=== PATIENT | female | born 1985 | race Caucasian/White ===

== ENCOUNTER 2016-06-04 16:24 | Emergency (ER) | payer SELFPAY ==
[2016-06-04 16:37] VITALS: TEMP 98; BMI 47.8
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
[2016-06-04 20:36] LABS: BASOPHIL 1.1 % (0-2.0); EOSINOPHIL 2.7 % (0-4.5); MCH 27.8 pg (25.7-33.7); MCHC 33.4 g/dl (32.0-36.0); MEAN CELL VOLUME 83.4 fl (80-96); MEAN PLT VOLUME 8.8 fl (7.5-11.1); NEUTROPHILS 61.3 % (42.8-82.8); PLATELET COUNT 272 K/MM3 (134-434); RDW 14.8 % (11.6-15.6); WHITE BLOOD COUNT 7.1 K/mm3 (4.0-10.0)
[2016-06-04 21:23] LABS: ALBUMIN 3.7 g/dl (3.4-5.0); ANION GAP 9 (8-16); BILIRUBIN,TOTAL 0.4 mg/dL (0.2-1.0); CALCIUM 8.8 mg/dL (8.5-10.1); CO2 26 mmol/L (21-32); CREATININE 0.8 mg/dL (0.55-1.02); GLUCOSE,RANDOM 100 mg/dL (74-106); SGOT/AST 15 U/L (15-37); SGPT/ALT 24 U/L (12-78); TOT PROT 7.6 g/dl (6.4-8.2)
[2016-06-04 21:24] LABS: ALK PHOS 72 U/L (45-117)
[2016-06-04 21:43] LABS: URINE APPEARANCE CLEAR; URINE BILIRUBIN NEGATIVE (NEGATIVE); URINE BLOOD NEGATIVE (NEGATIVE); URINE COLOR LTYELLOW; URINE GLUCOSE (UA) NEGATIVE (NEGATIVE); URINE KETONE NEGATIVE (NEGATIVE); URINE LEUK ESTERASE NEGATIVE (NEGATIVE); URINE NITRITE NEGATIVE (NEGATIVE); URINE PROTEIN NEGATIVE (NEGATIVE); URINE UROBILINOGEN 2.0 E.U/dl E.U./dl (0.2-1.0)
[2016-06-05] MEDS ORDERED: IBUPROFEN 400 MG TABLET (FP) PO ONE ×2 (00:49→00:57)
[2016-06-05 04:17] VITALS: BP 128/67; PULSE 64
== END 2016-06-05 01:09 | disposition home or self-care (01) ==
LOC: JER 16:24
DX: M25.562 Pain in left knee (principal); K80.20 Calculus of gallbladder without cholecystitis without obstruction; N20.0 Calculus of kidney; V47.5XXA Car driver injured in collision with fixed or stationary object in traffic accident, initial encounter; Y92.488 Other paved roadways as the place of occurrence of the external cause; Y93.89 Activity, other specified
CPT/HCPCS: 36415; 73562-TC-LT; 74176-TC; 80053; 81003; 84703; 85025; 99283-25; Q9967

== ENCOUNTER 2017-01-18 16:30 | Emergency (ER) | payer SELFPAY ==
[2017-01-18 16:42] VITALS: BP 129/69; PULSE 76; TEMP 98.6; BMI 43.9
[2017-01-18] MEDS ORDERED: DIPHTH,PERTUSS(ACELL),TET 0.5 ML DISP.SYRIN IM ONE (16:55)
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
== END 2017-01-18 17:41 | disposition home or self-care (01) ==
LOC: JER 16:30 → JERFT 16:30
PROC: 3E0234Z Introduction of Serum, Toxoid and Vaccine into Muscle, Percutaneous Approach (ICD-10-PCS; principal; 2017-01-18)
DX: S61.412A Laceration without foreign body of left hand, initial encounter (principal); W25.XXXA Contact with sharp glass, initial encounter; Y93.89 Activity, other specified; Y92.89 Other specified places as the place of occurrence of the external cause; Y99.8 Other external cause status
CPT/HCPCS: 73130-TC-LT; 90715; 99281-25

== ENCOUNTER 2018-03-13 14:04 | Emergency (ER) | payer SELFPAY ==
[2018-03-13 14:11] VITALS: BP 112/70; PULSE 71; TEMP 98.5; BMI 46.6
--- NOTE | 2018-03-13 15:18 | PDOC ---
History of Present Illness - General Chief Complaint: Eye Problem Stated Complaint: EYE PAIN Time Seen by Provider: 03/13/18 14:53 History Source: Patient Exam Limitations: No Limitations - History of Present Illness Initial Comments: 03/13/18 15:12 32 year old female with no medical history, surgical history of x 2 presents with right eye pain, swelling x 2 days. Also reports blurred vision and photophobia. Used no medication so far. Timing/Duration: other (2 days) Modifying Factors: improves with: rest Associated Symptoms: reports: denies symptoms Aspirin Received prior to arrival: Yes: no aspirin today Beta Daniel Contraindications(Core Measure): Yes: Not Prescribed Past History - Past Medical History Allergies/Adverse Reactions: Allergies Allergy/AdvReac Type Severity Reaction Status Date / Time Iodinated Contrast- Oral and Allergy Verified 01/18/17 16:57 IV Dye IV CONTRAST Allergy Itching Uncoded 01/18/17 16:43 Home Medications: Ambulatory Orders Erythromycin 0.5% Eye Ointment [Erythromycin 0.5% Eye Ointment -] 1 applic OS TID #1 tube 03/13/18 Asthma: No Cancer: No Cardiac Disorders: No COPD: No Diabetes: No Dialysis: No HTN: No Liver Disease: Yes (hep c) Seizures: No Thyroid Disease: No - Surgical History Abdominal Surgery: Yes (lap band) - Suicide/Smoking/Psychosocial Hx Smoking History: Never smoked Have you smoked in the past 12 months: Yes Number of Cigarettes Smoked Daily: 2 If you are a former smoker, when did you quit?: 2016 Information on smoking cessation initiated: No Hx Alcohol Use: No Drug/Substance Use Hx: No Substance Use Type: None Hx Substance Use Treatment: No Review of Systems - Review of Systems Able to Perform ROS?: Yes Is the patient limited Gabonese proficient: No Constitutional: No: Chills, Fever HEENTM: Yes: Eye Pain, Blurred Vision Respiratory: No: Cough, Shortness of Breath Cardiac (ROS): No: Chest Pain ABD/GI: No: Abdominal Distended, Vomiting, Indigestion Integumentary: No: Bruising, Erythema, Other Neurological: No: Headache, Numbness *Physical Exam - Vital Signs Last Vital Signs Temp Pulse Resp BP Pulse Ox 98.5 F 71 16 112/70 100 03/13/18 14:08 03/13/18 14:08 03/13/18 14:08 03/13/18 14:08 03/13/18 14:08 - Physical Exam General Appearance: Yes: Nourished, Appropriately Dressed HEENT: positive: TMs Normal, Scleral Icterus (L), Other (erythematous conjuctiva , no eye drainage) Neck: negative: Lymphadenopathy (R), Lymphadenopathy (L) Respiratory/Chest: positive: Lungs Clear Cardiovascular: positive: Regular Rhythm, Regular Rate, S1, S2 Extremity: positive: Normal Capillary Refill Neurologic: positive: Fully Oriented, Alert, Normal Mood/Affect Moderate Sedation - Procedure Monitoring Vital Signs: Procedure Monitoring Vital Signs Temperature 98.5 F 03/13/18 14:08 Pulse Rate 71 03/13/18 14:08 Respiratory Rate 16 03/13/18 14:08 Blood Pressure 112/70 03/13/18 14:08 O2 Sat by Pulse Oximetry (%) 100 03/13/18 14:08 Medical Decision Making - Medical Decision Making 03/13/18 15:16 32 year old female with x 2 and no significant medical history presents with left eye pain, swelling and photophobia x 2 days. Plan fluracein stain with uptake at 8 o'clock Rx: erythromycin ointment patanol gtts *DC/Admit/Observation/Transfer Diagnosis at time of Disposition: Conjunctivitis Qualifiers: Conjunctivitis type: acute Acute conjunctivitis type: viral Laterality: left Qualified Code(s): B30.9 - Viral conjunctivitis, unspecified - Discharge Dispostion Disposition: HOME Condition at time of disposition: Good Decision to Admit order: No - Prescriptions Prescriptions: Erythromycin 0.5% Eye Ointment [Erythromycin 0.5% Eye Ointment -] 1 applic OS TID #1 tube - Referrals Referrals: Ian Chung MD [Staff Physician] - 2 Days - Patient Instructions Printed Discharge Instructions: DI for Conjunctivitis Additional Instructions: Please wash hand frequently especially after touching eyes. Return for worsening pain in eyes or vision loss Call eye doctor for worsening symptoms - Post Discharge Activity Forms/Work/School Notes: Back to Work
== END 2018-03-13 15:25 | disposition home or self-care (01) ==
LOC: JERFT 14:04
DX: B30.9 Viral conjunctivitis, unspecified (principal)
CPT/HCPCS: 99281-25

== ENCOUNTER 2018-04-27 11:37 | Emergency (ER) | payer OTHER ==
[2018-04-27 11:54] VITALS: BP 109/56; PULSE 85; TEMP 98.6; BMI 51.7
--- NOTE | 2018-04-27 13:05 | PDOC ---
History of Present Illness - General Chief Complaint: Vaginal Bleeding Stated Complaint: VAGINAL BLEEDING Time Seen by Provider: 04/27/18 11:56 History Source: Patient, Old Records Exam Limitations: No Limitations - History of Present Illness Initial Comments: HPI: 32 y/o female presenting to [facility] ER complaining of vaginal bleeding. Pt states she has had irregular vaginal bleeding since November. Experienced an episode of heavy vaginal bleeding with clot-like material two weeks ago. Presented to [facility] ED. Was told she was , which was confirmed by U/S, and discharged. Continued to pass bloody/mucus discharge. Pt experienced a similar episode of heavy bleeding with clot-like material this morning at approx. 4am. Pt has used approx. 6 feminine pads over the course of the morning but states they were not saturated when she changed them. Endorses lightheadedness this morning, which resolved. Also endorses a sense of fullness and pressure throughout abdomen but denies pain. Denies chest pain, SOB, or syncope. Reports feeling safe in home environment and relationship. OBGYN Hx: A1 H/o of short cervix x2 Denies h/o STD PCP: [facility] Medical Hx: - Obesity - S/p Lap Banding Procedure in 2009 Pt denies taking prescription medications. Past History - Past Medical History Allergies/Adverse Reactions: Allergies Allergy/AdvReac Type Severity Reaction Status Date / Time Iodinated Contrast- Oral and Allergy Verified 01/18/17 16:57 IV Dye IV CONTRAST Allergy Itching Uncoded 01/18/17 16:43 Home Medications: Ambulatory Orders Nitrofurantoin Monohyd/M-Cryst [Macrobid -] 100 mg PO BID #14 capsule 04/27/18 Asthma: No Cancer: No Cardiac Disorders: No COPD: No Diabetes: No Dialysis: No HTN: No Liver Disease: Yes (hep c) Seizures: No Thyroid Disease: No - Surgical History Abdominal Surgery: Yes (lap band) - Suicide/Smoking/Psychosocial Hx Smoking History: Never smoked Have you smoked in the past 12 months: No Number of Cigarettes Smoked Daily: 2 If you are a former smoker, when did you quit?: 2016 Information on smoking cessation initiated: No Hx Alcohol Use: No Drug/Substance Use Hx: No Substance Use Type: None Hx Substance Use Treatment: No Review of Systems - Review of Systems Able to Perform ROS?: Yes Comments:: In addition to that documented in the HPI above, the additional ROS was obtained : Constitutional: Denies fevers or chills Eyes: Denies vision changes ENMT: Denies sore throat CV: Denies chest pain Resp: Denies SOB GI: Denies vomiting or diarrhea : Endorses increased urinary frequency over the past several weeks. Denies painful urination or hematuria. Vaginal discharge per HPI MSK: Denies recent trauma Skin: Denies new rashes Neuro: Denies new numbness or tingling or weakness Endocrine: Denies polyuria Heme: Denies bleeding or bruising *Physical Exam - Vital Signs Last Vital Signs Temp Pulse Resp BP Pulse Ox 98.6 F 85 18 109/56 L 98 04/27/18 11:51 04/27/18 11:51 04/27/18 11:51 04/27/18 11:51 04/27/18 11:51 - Physical Exam Comments: Constitutional: Well-developed, well-nourished female in no acute distress or obvious discomfort. Obese body habitus. Found semi-fowlers on hospital [employer] table. Alert and oriented x4. Answered all questions appropriately and completely. Speech was non-labored, non-pressured. Head: Normocephalic. No obvious external signs of trauma. Eyes: Sclerae white. Conjunctiva pink, moist, and not injected. Ears: Hearing grossly intact. Nose: No nasal discharge. Throat: Oral cavity and pharynx normal. No inflammation, swelling, exudate, or lesions. Multiple lingual piercings. Neck: Supple, trachea is midline. Cardiovascular / Chest: Regular rate and regular rhythm. No murmur, rubs, clicks, or gallops. Peripheral pulses: radial pulses full. Respiratory: Breathing unlabored. Equal chest rise and fall. Clear to auscultation bilaterally. No stridor, no wheezing, no rhonchi. Gastrointestinal: abdomen is diffusely tender to palpation without grimace, rebound, or withdrawl. Globally, abdomen is protuberant, soft, and nondistended. No overlying skin lesions or obvious signs of trauma. Neuro: Alert and oriented. Moving all four extremities spontaneously. Skin: [place], warm, dry, and intact. : No R or L CVA tenderness. Psych: Affect: appropriate. Mood: normal. Female Pelvic: External genitalia unremarkable. Speculum exam with blood and mucus discharge that pooled at end of speculum. Vaginal wall mucosa is unremarkable. Cervix difficult to visualized but visible portion is unremarkable (closed in appearance without any protruding material). Bimanual exam revealed closed OS without cervical motion tenderness, adnexal tenderness or any masses appreciated. RN chaperoned exam. Moderate Sedation - Procedure Monitoring Vital Signs: Procedure Monitoring Vital Signs Temperature 98.6 F 04/27/18 11:51 Pulse Rate 85 04/27/18 11:51 Respiratory Rate 18 04/27/18 11:51 Blood Pressure 109/56 L 04/27/18 11:51 O2 Sat by Pulse Oximetry (%) 98 04/27/18 11:51 ED Treatment Course - LABORATORY CBC & Chemistry Diagram: 04/27/18 13:00 04/27/18 13:00 - RADIOLOGY Radiology Studies Ordered: Category Date Time Status TRANSVAGINAL US PREG [US] Stat Ultrasound 04/27/18 12:40 Ordered *DC/Admit/Observation/Transfer Diagnosis at time of Disposition: Vaginal bleeding in patient at less than 20 weeks gestation - Discharge Dispostion Disposition: HOME Condition at time of disposition: Stable Decision to Admit order: No - Prescriptions Prescriptions: Nitrofurantoin Monohyd/M-Cryst [Macrobid -] 100 mg PO BID #14 capsule - Referrals Referrals: Laura Skelton MD [Staff Physician] - - Patient Instructions - Post Discharge Activity
[2018-04-27 13:23] LABS: URINE APPEARANCE SLCLOUDY; URINE BILIRUBIN NEGATIVE (<2.0 mg/dL); URINE GLUCOSE (UA) NEGATIVE (NEGATIVE); URINE KETONE NEGATIVE (NEGATIVE); URINE LEUK ESTERASE 2+ (NEGATIVE); URINE NITRITE NEGATIVE (NEGATIVE); URINE PROTEIN 2+ (NEGATIVE); URINE UROBILINOGEN NEGATIVE mg/dL (0.2-1.0)
[2018-04-27 13:31] LABS: URINE COLOR DK YELLOW
[2018-04-27 13:32] LABS: EPI CELLS FEW /HPF (FEW); URINE MUCUS MANY
[2018-04-27 14:16] LABS: INR 1.04 (0.83-1.09); PROTHROMBIN TIME (PATIENT) 12.3 SEC (9.7-13.0)
[2018-04-27 14:18] LABS: ACTIVATED PTT 29.4 SECONDS (25.2-36.5)
[2018-04-27 14:20] LABS: BASO % 0.8 % (0-2.0); EOS % 2.4 % (0-4.5); HEMATOCRIT 35.2 % (32.4-45.2); HEMOGLOBIN 12.4 GM/dL (10.7-15.3); LYMPH % 13.7 % (8-40); MCH 30.6 pg (25.7-33.7); MCHC 35.3 g/dl (32.0-36.0); MEAN CELL VOLUME 86.7 fl (80-96); MEAN PLT VOLUME 9.2 fl (7.5-11.1); MONO % 6.9 % (3.8-10.2); NEUT % 76.2 % (42.8-82.8); PLATELET COUNT 220 K/MM3 (134-434); RBC 4.07 M/mm3 (3.60-5.2); WHITE BLOOD COUNT 10.8 K/mm3 (4.0-10.0)
[2018-04-27 14:28] LABS: ANION GAP 8 MMOL/L (8-16); BLOOD UREA NITROGEN 8 mg/dL (7-18); CHLORIDE 105 mmol/L (98-107); CO2 23 mmol/L (21-32); CREATININE 0.6 mg/dL (0.55-1.3); GLUCOSE,RANDOM 93 mg/dL (74-106); POTASSIUM 4.1 mmol/L (3.5-5.1); SODIUM 136 mmol/L (136-145)
--- NOTE | 2018-04-27 14:52 | PDOC ---
Attending Attestation - HPI HPI: 04/27/18 14:53 The patient is a 32-year-old female, A1, who is 15 weeks and 2 days by US taken at [facility] last week. Patient presents today with vaginal bleeding. The patient notes passing clot around 4 AM today. During this time the patient reports feeling lightheaded, which resolved spontaneously. The patient is passing mucus and blood and has been double stacking her pads. She reports a similar episode of bleeding last week, which prompted her to go to [facility]. She has a history of short cervix, but has not had a cerclage. The patient denies any fevers, chills, nausea, vomiting, diarrhea, or abdominal pain. Denies any chest pain or shortness of breath. Allergies: Iodinated contrast - oral and IV dye. Social History: None reported. Surgical History: Lap band surgery - 2009 - Physicial Exam PE: 04/27/18 14:54 GENERAL: Awake, alert, and fully oriented, in no acute distress HEAD: No signs of trauma NECK: Normal ROM, supple, no lymphadenopathy, JVD, or masses LUNGS: Breath sounds equal, clear to auscultation bilaterally. No wheezes, and no crackles HEART: Regular rate and rhythm, normal S1 and S2, no murmurs, rubs or gallops ABDOMEN: (+)Obese. Soft, nontender, normoactive bowel sounds. No guarding, no rebound. No masses EXTREMITIES: Normal range of motion, no edema. No clubbing or cyanosis. No cords, erythema, or tenderness NEUROLOGICAL: Alert and oriented x 3. Moves all extremities. Face is symmetric. SKIN: Warm, Dry, normal turgor, no rashes or lesions noted <Fouzia Reed - Last Filed: 04/27/18 15:04> - Resident Resident Name: Jose Keys - ED Attending Attestation I have performed the following: I have examined & evaluated the patient, The case was reviewed & discussed with the resident, I agree w/resident's findings & plan, Exceptions are as noted - Medical Decision Making 04/27/18 15:03 differential missed or threatened ab, anemia, demise. plan tvus labs . pt blood type o positive. us with FHR 152, cervix length 3.2 cm. d/w dr ziegler will see in office. pt told to follow up this weekl. 04/27/18 15:11 pt ua came back after pt left as requesting discharge prior to results. called pt to leave message to call back for abx for uti, rx for macrobid sent to pharmacy [facility] 04/27/18 15:26 pt called back informed of uti, and aware of prescription at [facility]. <Ricarda Triplett - Last Filed: 04/27/18 15:26> Attestations - Attestations 04/27/18 14:54 Documentation prepared by Fouzia Reed, acting as lead medical technologist for Ricarda Triplett MD. <Fouzia Reed - Last Filed: 04/27/18 15:04>
== END 2018-04-27 15:49 | disposition home or self-care (01) ==
LOC: JER 11:37
DX: O26.892 Other specified pregnancy related conditions, second trimester (principal); O20.8 Other hemorrhage in early pregnancy; O23.42 Unspecified infection of urinary tract in pregnancy, second trimester; Z3A.15 15 weeks gestation of pregnancy
CPT/HCPCS: 36415; 76817-TC; 80048; 81003; 81015; 84702; 85025; 85610; 85730; 86850; 86900; 86901; 87086; 99283-25

== ENCOUNTER 2018-04-30 21:25 | Emergency (ER) | payer OTHER ==
--- NOTE | 2018-04-30 21:30 | PDOC ---
Rapid Medical Evaluation Time Seen by Provider: 04/30/18 21:28 Medical Evaluation: Allergies Allergy/AdvReac Type Severity Reaction Status Date / Time Iodinated Contrast- Oral and Allergy Verified 01/18/17 16:57 IV Dye IV CONTRAST Allergy Itching Uncoded 01/18/17 16:43 04/30/18 21:28 I have performed a brief in-person evaluation of this patient. The patient presents with a chief complaint of:16 weeks with vaginal bleeding, cramping and back pain, 16 soaked pads per day Pertinent physical exam findings:NAD I have ordered the following:Lab work The patient will proceed to the ED for further evaluation. Discharge Disposition - Diagnosis Threatened - Referrals - Patient Instructions - Post Discharge Activity
[2018-04-30 21:31] VITALS: BP 130/59; PULSE 87; TEMP 98.8; BMI 51.7
[2018-04-30 21:59] LABS: BASO % 0.6 % (0-2.0); EOS % 2.3 % (0-4.5); HEMATOCRIT 33.2 % (32.4-45.2); HEMOGLOBIN 11.7 GM/dL (10.7-15.3); LYMPH % 15.5 % (8-40); MCH 30.7 pg (25.7-33.7); MCHC 35.2 g/dl (32.0-36.0); MEAN CELL VOLUME 87.2 fl (80-96); MEAN PLT VOLUME 8.9 fl (7.5-11.1); MONO % 7.5 % (3.8-10.2); NEUT % 74.1 % (42.8-82.8); PLATELET COUNT 241 K/MM3 (134-434); RDW 13.9 % (11.6-15.6)
[2018-04-30 22:00] LABS: URINE APPEARANCE TURBID; URINE BILIRUBIN NEGATIVE (<2.0 mg/dL); URINE COLOR AMBER; URINE GLUCOSE (UA) NEGATIVE (NEGATIVE); URINE KETONE NEGATIVE (NEGATIVE); URINE LEUK ESTERASE 1+ (NEGATIVE); URINE NITRITE NEGATIVE (NEGATIVE); URINE PROTEIN 3+ (NEGATIVE)
[2018-04-30 22:02] LABS: EPI CELLS FEW /HPF (FEW); URINE MUCUS FEW; YEAST FEW
[2018-04-30 22:10] LABS: INR 1.02 (0.83-1.09)
--- NOTE | 2018-04-30 22:14 | PDOC ---
*Physical Exam - Vital Signs Last Vital Signs Temp Pulse Resp BP Pulse Ox 98.8 F 87 18 130/59 L 100 04/30/18 21:28 04/30/18 21:28 04/30/18 21:28 04/30/18 21:28 04/30/18 21:28 ED Treatment Course - LABORATORY CBC & Chemistry Diagram: 04/30/18 21:47 - ADDITIONAL ORDERS Additional order review: Laboratory Results 04/30/18 04/30/18 21:47 21:42 PT with INR 12.00 INR 1.02 Urine Color Heike Urine Appearance Turbid Urine pH 6.0 Ur Specific [place] 1.034 Urine Protein 3+ H Urine Glucose (UA) Negative Urine Ketones Negative Urine Blood 2+ H Urine Nitrite Negative Urine Bilirubin Negative Urine Urobilinogen 2.0 H Ur Leukocyte Esterase 1+ H Urine WBC (Auto) 922 Urine RBC (Auto) 1433 Ur Epithelial Cells Few Urine Mucus Few Urine Yeast Few 04/30/18 21:47 RBC 3.80 MCV 87.2 MCHC 35.2 RDW 13.9 MPV 8.9 Neutrophils % 74.1 Lymphocytes % 15.5 Monocytes % 7.5 Eosinophils % 2.3 Basophils % 0.6 Medical Decision Making - Medical Decision Making 04/30/18 22:53 32 yo F G 4 P2 currently 15 weeks presenting with vaginal bleeding Pt was seen here 3 days ago for the same US demonstrated single live IUP (+) FHR Pt seen by Midlevel Provider under my direct supervision Ancillary studies reviewed: Laboratory Tests 04/30/18 04/30/18 04/30/18 21:42 21:47 21:47 WBC 11.0 H Hgb 11.7 Hct 33.2 Plt Count 241 INR 1.02 Beta HCG, Quant Urine Nitrite Negative Ur Leukocyte Esterase 1+ H Urine WBC (Auto) 922 Urine RBC (Auto) 1433 04/30/18 21:47 WBC Hgb Hct Plt Count INR Beta HCG, Quant 97194.3 Urine Nitrite Ur Leukocyte Esterase Urine WBC (Auto) Urine RBC (Auto) I agree with plan as outlined by Midlevel Provider *DC/Admit/Observation/Transfer Diagnosis at time of Disposition: Threatened - Referrals - Patient Instructions - Post Discharge Activity
--- NOTE | 2018-04-30 22:33 | PDOC ---
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 Patient states her last menses was in November 2017. Patient's been experiencing intermittent pink light vaginal bleed every other day which increased into blood clots on April 07. Patient was seen at [facility] emergency Department and was informed she was but everything was fine via ultrasound. Patient states the vaginal clots continued and was seen at [facility] emergency department and was given an ultrasound which showed IUP at 15 weeks/3d with hr 152bpm. Patient states the bleeding has continued and noticed again, some clots this evening but denies nausea/ vomiting, fever/chills, dizziness, lightheadedness, facial pains, chest pain, shortness of breath, back pains, abdominal pains, flank pains, urinary symptoms : Frequency/urgency/hesitancy. 05/01/18 0006 Patient was reevaluated: Patient was on her cell phone resting comfortably in exam room 5. Patient states she has no pain, nausea/vomiting, fever/chills, chest pain, shortness of breath, abdominal pain at this time. Patient states she feels well and is waiting for her ultrasound. Past History - Past Medical History Allergies/Adverse Reactions: Allergies Allergy/AdvReac Type Severity Reaction Status Date / Time Iodinated Contrast- Oral and Allergy Verified 04/30/18 21:31 IV Dye IV CONTRAST Allergy Itching Uncoded 04/30/18 21:31 Home Medications: Ambulatory Orders Nitrofurantoin Monohyd/M-Cryst [Macrobid -] 100 mg PO BID #14 capsule 04/27/18 Asthma: No Cancer: No Cardiac Disorders: No COPD: No Diabetes: No Dialysis: No HTN: No Liver Disease: Yes (hep c) Seizures: No Thyroid Disease: No - Surgical History Abdominal Surgery: Yes (lap band) - Reproductive History (#): 3 Para: 2 - Suicide/Smoking/Psychosocial Hx Smoking History: Never smoked Have you smoked in the past 12 months: No Number of Cigarettes Smoked Daily: 2 If you are a former smoker, when did you quit?: 2016 Information on smoking cessation initiated: No Hx Alcohol Use: No Drug/Substance Use Hx: No Substance Use Type: None Hx Substance Use Treatment: No Review of Systems - Review of Systems Able to Perform ROS?: Yes Comments:: 04/30/18 22:32 CONSTITUTIONAL: Absent: fever, chills, diaphoresis, generalized weakness, malaise, loss of appetite HEENT: Absent: rhinorrhea, nasal congestion, throat pain, throat swelling, difficulty swallowing, mouth swelling, ear pain, eye pain, visual Changes CARDIOVASCULAR: Absent: chest pain, loss of consciousness, palpitations, irregular heart rate, peripheral edema RESPIRATORY: Absent: cough, shortness of breath, dyspnea with exertion, orthopnea, wheezing, stridor, hemoptysis GASTROINTESTINAL: Absent: abdominal pain, abdominal distension, nausea, vomiting, diarrhea, constipation, melena, hematochezia GENITOURINARY: Absent: dysuria, frequency, urgency, hesitancy, hematuria, flank pain, genital pain MUSCULOSKELETAL: Absent: myalgia, arthralgia, joint swelling SKIN: Absent: rash, itching, pallor HEMATOLOGIC/IMMUNOLOGIC: Absent: easy bleeding, easy bruising, lymphadenopathy, frequent infections ENDOCRINE: Absent: unexplained weight gain, unexplained weight loss, heat intolerance, cold intolerance Is the patient limited French proficient: No *Physical Exam - Vital Signs Last Vital Signs Temp Pulse Resp BP Pulse Ox 98.8 F 87 18 130/59 L 100 04/30/18 21:28 04/30/18 21:28 04/30/18 21:28 04/30/18 21:28 04/30/18 21:28 - Physical Exam Comments: 04/30/18 22:32 GENERAL: Well developed, well nourished. Awake and alert. No acute distress. HEENT: Normocephalic, atraumatic. PERRLA, EOMI. No conjunctival pallor. Sclera are non- icteric. Moist mucous membranes. Oropharynx is clear. NECK: Supple. Full ROM. No JVD. Carotid pulses 2+ and symmetric, without bruits. No thyromegaly. No lymphadenopathy. CARDIOVASCULAR: Regular rate and rhythm. No murmurs, rubs, or gallops. Distal pulses are 2+ and symmetric. PULMONARY: No evidence of respiratory distress. Lungs clear to auscultation bilaterally. No wheezing, rales or rhonchi. ABDOMINAL: Soft. Non-tender. Non-distended. No rebound or guarding. No organomegaly. Normoactive bowel sounds. MUSCULOSKELETAL Normal range of motion at all joints. No bony deformities or tenderness. No CVA tenderness. EXTREMITIES: No cyanosis. No clubbing. No edema. No calf tenderness. SKIN: Warm and dry. Normal capillary refill. No rashes. No jaundice. Moderate Sedation - Procedure Monitoring Vital Signs: Procedure Monitoring Vital Signs Temperature 98.8 F 04/30/18 21:28 Pulse Rate 87 04/30/18 21:28 Respiratory Rate 18 04/30/18 21:28 Blood Pressure 130/59 L 04/30/18 21:28 O2 Sat by Pulse Oximetry (%) 100 04/30/18 21:28 ED Treatment Course - LABORATORY CBC & Chemistry Diagram: 04/30/18 21:47 - ADDITIONAL ORDERS Additional order review: Laboratory Results 04/30/18 04/30/18 21:47 21:42 PT with INR 12.00 INR 1.02 Urine Color Heike Urine Appearance Turbid Urine pH 6.0 Ur Specific [place] 1.034 Urine Protein 3+ H Urine Glucose (UA) Negative Urine Ketones Negative Urine Blood 2+ H Urine Nitrite Negative Urine Bilirubin Negative Urine Urobilinogen 2.0 H Ur Leukocyte Esterase 1+ H Urine WBC (Auto) 922 Urine RBC (Auto) 1433 Ur Epithelial Cells Few Urine Mucus Few Urine Yeast Few 04/30/18 21:47 RBC 3.80 MCV 87.2 MCHC 35.2 RDW 13.9 MPV 8.9 Neutrophils % 74.1 Lymphocytes % 15.5 Monocytes % 7.5 Eosinophils % 2.3 Basophils % 0.6 - RADIOLOGY Radiology Studies Ordered: Category Date Time Status LIMITED US [US] Stat Ultrasound 04/30/18 22:05 Ordered Radiograph Interpretation: 05/01/18 00:56 Transvaginal ultrasound: Live intrauterine at estimated age 15 weeks and 6 days. There is a breech position. Normal heart rate of 163 bpm. Normal amount of amniotic fluid for age. No subchorionic bleed. movement was identified. Breech physician may changer fixer the course of . Progress Note - Progress Note Progress Note: 0103hrs: called Dr. Tracie Rayo/OB completions manager [phone] 0150hrs: Seen by Dr. Cuenca/OB completions manager in the ER cervix is 3m/ os is closed *DC/Admit/Observation/Transfer Diagnosis at time of Disposition: Threatened - Discharge Dispostion Disposition: HOME Condition at time of disposition: Stable Decision to Admit order: No - Referrals Referrals: Maria Del Carmen Parra MD [Staff Physician] - - Patient Instructions Printed Discharge Instructions: DI for Threatened Additional Instructions: You had a transvaginal ultrasound this evening. The following is the preliminary reading: Transvaginal ultrasound: Live intrauterine at estimated age 15 weeks and 6 days. There is a breech position. Normal heart rate of 163 bpm. Normal amount of amniotic fluid for age. No subchorionic bleed. movement was identified. Breech physician may changer fixer the course of . Increase fluids Rest Pelvic rest as discussed Return back to the ER for severe/persistent or worsening symptoms Otherwise, as discussed, it is very important that you follow-up with the applied marine physics professor. [place] [address].3 Be sure to go to the clinic on Thursday as scheduled. You were examined by Dr. Rayo in the ER - Post Discharge Activity
== END 2018-05-01 02:21 | disposition home or self-care (01) ==
LOC: JER 21:25
DX: O26.892 Other specified pregnancy related conditions, second trimester (principal); O20.0 Threatened abortion; Z3A.15 15 weeks gestation of pregnancy
CPT/HCPCS: 36415; 76815-TC; 81003; 81015; 84702; 85025; 85610; 86850; 86900; 86901; 99283-25

== ENCOUNTER 2018-05-24 21:18 | Emergency (ER) | payer OTHER ==
[2018-05-24 21:30] VITALS: TEMP 100.3; BMI 51.1
--- NOTE | 2018-05-24 21:57 | PDOC ---
Attending Attestation - HPI HPI: 05/24/18 22:00 The patient is a 33 year old female with a PMH of obesity s/p lap band and anemia who presents to the ER with sudden onset shortness of breath and nonbloody cough today. Patient states that she was recently seen at [facility] for a D&C at 18 weeks. Patient required hospitalization, an intubation, PRBC transfusions then and was extubated 4 days ago. Patient has also noticed hematoma throughout her body after the D&C. The patient denies chest pain, headache and dizziness. Denies fever, chills, nausea, vomit, diarrhea and constipation. Denies dysuria, frequency, urgency and hematuria. Allergies: NKA Past surgical history: lap band Social history: No reported alcohol, drug or cigarette use. - Physicial Exam PE: 05/24/18 22:22 Agrees with resident's exam. <Rachel Downing - Last Filed: 05/24/18 22:21> - Resident Resident Name: Dale Rosen - ED Attending Attestation I have performed the following: I have examined & evaluated the patient, The case was reviewed & discussed with the resident, I agree w/resident's findings & plan - Medical Decision Making 05/25/18 04:25 33-year-old female with substernal pressure and shortness about status post recent admission with intubation Patient was high risk for pulmonary embolism with acute dyspnea recent and largely elevated d-dimer CTA of the chest was performed after lengthy discussion with the patient involving risk with administration of IV contrast pending that she had had rash with administration in the past Patient was aware of the risk and did allow the test to be completed after premedication with Solu-Medrol 125 mg as well as Benadryl 50 mg IV CTA was negative for pulmonary embolism There was some improvement after DuoNeb 1 in the emergency department as well Patient's epigastric pain is substernal and does not radiate to the back of right upper quadrant or lower abdomen She ate Pose[employer] while in the emergency department without difficulty and states that her appetite is normal She does have a history of reactive surgery, she's had no vomiting or diarrhea She will be discharged to follow-up with her surgeon in regards to incidental finding of all stones on CT scan Leva pack will be prescribed to due to likely bronchitis in the setting of recent intubation and hospital admission <Erum Garcia - Last Filed: 05/25/18 04:27>
[2018-05-24] MEDS ORDERED: methylPREDNISolone NA SUCC 125 MG/2 ML VIAL IVPUSH ONE (22:04)
--- NOTE | 2018-05-24 22:57 | PDOC ---
History of Present Illness - General Chief Complaint: Chest Pain Stated Complaint: CHEST PAIN/FEVER Time Seen by Provider: 05/24/18 21:34 History Source: Patient - History of Present Illness Initial Comments: 05/24/18 22:57 33f , with pmh of obesity, lap band, iron deficiency previously seen a [facility] for D&C following miscarriage on April,. She's presenting today with sudden onset shortness of breath, chest pain and cough with a fever of 101. She was brought to the OR in [facility] with estimated 2.5L blood loss, mtp activated with 7U prbc, 6 FFP, 1 platelets and 1 cryo. Remained intubated at SICU, lactate was up 2.5 and required 2 additional units of rbcs, extubated on 05/20. Required additional 1 U that night. Discharged on 05/22. Past History - Past Medical History Allergies/Adverse Reactions: Allergies Allergy/AdvReac Type Severity Reaction Status Date / Time Iodinated Contrast- Oral and Allergy Verified 05/24/18 21:30 IV Dye IV CONTRAST Allergy Itching Uncoded 05/24/18 21:30 Home Medications: Ambulatory Orders Nitrofurantoin Monohyd/M-Cryst [Macrobid -] 100 mg PO BID #14 capsule 04/27/18 Levofloxacin [Levaquin] 750 mg PO DAILY #5 tablet 05/25/18 Asthma: No Cancer: No Cardiac Disorders: No COPD: No Diabetes: No Dialysis: No HTN: No Liver Disease: Yes (hep c) Seizures: No Thyroid Disease: No - Surgical History Abdominal Surgery: Yes (lap band/) - Reproductive History (#): 3 Para: 2 Cervical CA: No Dysfunctional Uterine Bleeding: No Ectopic : No Endometrial CA: No Polycystic Ovaries: No Therapeutic (s) & number: No Tubal Ligation: No - Suicide/Smoking/Psychosocial Hx Smoking History: Never smoked Have you smoked in the past 12 months: No Number of Cigarettes Smoked Daily: 2 If you are a former smoker, when did you quit?: 2016 Information on smoking cessation initiated: No Hx Alcohol Use: No Drug/Substance Use Hx: No Substance Use Type: None Hx Substance Use Treatment: No Review of Systems - Review of Systems Able to Perform ROS?: Yes Is the patient limited Bulgarian proficient: No Constitutional: No: Symptoms Reported HEENTM: No: Symptoms Reported Respiratory: Yes: Cough, SOB with Exertion Cardiac (ROS): No: Symptoms Reported ABD/GI: No: Symptoms Reported : No: Symptoms Reported Musculoskeletal: No: Symptoms Reported Integumentary: No: Symptoms Reported Neurological: No: Symptoms reported All Other Systems: Reviewed and Negative *Physical Exam - Vital Signs Last Vital Signs Temp Pulse Resp BP Pulse Ox 100.3 F H 65 18 129/100 100 05/24/18 21:24 05/24/18 21:24 05/24/18 21:24 05/24/18 21:24 05/24/18 21:24 - Physical Exam General Appearance: Yes: Mild Distress, Obese HEENT: positive: EOMI, ERNESTO, Normal ENT Inspection Respiratory/Chest: positive: Chest Tender (substernal) Cardiovascular: positive: Bradycardia Gastrointestinal/Abdominal: positive: Normal Bowel Sounds, Soft. negative: Tender Musculoskeletal: positive: Normal Inspection. negative: CVA Tenderness Extremity: positive: Normal Capillary Refill, Normal Inspection, Normal Range of Motion Integumentary: positive: Normal Color, Dry, Warm Neurologic: positive: Fully Oriented, Alert, Normal Mood/Affect, Motor Strength / ED Treatment Course - LABORATORY CBC & Chemistry Diagram: 05/24/18 22:55 05/24/18 22:55 Medical Decision Making - Medical Decision Making 05/25/18 01:26 PE high on the differential due to well's score: recent surgery, , cough is present without blood though. Will need to rule out PE first. Previous time patient had iv contrast she described a mild itch, relieved by Benadryl. D-Dimer elevated at 5000, negative DVT study. Will need to obtain CTA chest PE protocol. Spoke with patient who understands the risks of anaphylactic shock. Premedicated with methylprednisolone and benadryl 05/25/18 01:30 CTA negative for PE Treating patient with duoneb 05/25/18 03:23 Feels better after treatment 05/25/18 04:45 ok to discharge with antibiotics for fever, cough and lymphadenopathy, *DC/Admit/Observation/Transfer Diagnosis at time of Disposition: Cough - Discharge Dispostion Disposition: HOME Condition at time of disposition: Improved Decision to Admit order: No - Referrals - Patient Instructions Printed Discharge Instructions: DI for Atypical Chest Pain Additional Instructions: Follow up with your gastric surgeon Dr. Sanon, within the week. Come back to the emergency department for any new, worsening or concerning symptoms. coding clerks supervisor your antibiotics at the pharmacy. - Post Discharge Activity
[2018-05-24 23:06] LABS: BASO % 1.2 % (0-2.0); EOS % 2.5 % (0-4.5); HEMATOCRIT 28.5 % (32.4-45.2); LYMPH % 17.8 % (8-40); MCH 31.5 pg (25.7-33.7); NEUT % 67.5 % (42.8-82.8); PLATELET COUNT 280 K/MM3 (134-434); RBC 3.16 M/mm3 (3.60-5.2); RDW 14.8 % (11.6-15.6); WHITE BLOOD COUNT 6.6 K/mm3 (4.0-10.0)
[2018-05-24 23:18] LABS: INR 1.04 (0.83-1.09); PROTHROMBIN TIME (PATIENT) 12.3 SEC (9.7-13.0)
[2018-05-24 23:42] LABS: ALBUMIN 2.7 g/dl (3.4-5.0); ALK PHOS 80 U/L (45-117); ANION GAP 7 MMOL/L (8-16); BILIRUBIN,TOTAL 0.4 mg/dL (0.2-1); BLOOD UREA NITROGEN 4 mg/dL (7-18); CALCIUM 8.3 mg/dL (8.5-10.1); CHLORIDE 107 mmol/L (98-107); CO2 25 mmol/L (21-32); CREATININE 0.6 mg/dL (0.55-1.3); GLUCOSE,RANDOM 85 mg/dL (74-106); POTASSIUM 3.8 mmol/L (3.5-5.1); SGOT/AST 25 U/L (15-37); SGPT/ALT 17 U/L (13-61); SODIUM 139 mmol/L (136-145)
[2018-05-24 23:45] LABS: PLATELET ESTIMATE ADEQUATE
[2018-05-24 23:52] LABS: EPI CELLS 4.5 /HPF (0-5); HYALINE CASTS 4 /hpf (0-8); PH,URINE 6.5 (5.0-8.0); URINE APPEARANCE CLOUDY; URINE BACTERIA 2.016 /hpf (NEGATIVE); URINE BILIRUBIN NEGATIVE (NEGATIVE); URINE COLOR RED; URINE GLUCOSE (UA) NEGATIVE (NEGATIVE); URINE KETONE NEGATIVE (NEGATIVE); URINE LEUK ESTERASE 2+ (NEGATIVE); URINE NITRITE NEGATIVE (NEGATIVE); URINE PROTEIN 2+ (NEGATIVE); URINE RBC 1104 /hpf (0-4); URINE UROBILINOGEN 0.2 mg/dL (0.2-1.0); URINE WBC 30 /hpf (0-5)
[2018-05-25] MEDS ORDERED: methylPREDNISolone NA SUCC 125 MG/2 ML VIAL ONE (00:23)
[2018-05-25] MEDS ORDERED: ALBUTEROL SO4 2.5/IPRATROPIUM 0.5 INH SOL 3 ML VIAL.NEB. NEB ONE ×2 (02:53→03:00)
[2018-05-25] MEDS ORDERED: LIDOCAINE VISCOUS 2% ORAL/TOP 20 ML UNIT-DOSE CUP MM ONE (04:01)
[2018-05-25] MEDS ORDERED: MAG HYDROX/AL HYDROX/SIMETH 30 ML UNIT-DOSE CUP PO ONE (04:02)
[2018-05-25] MEDS ORDERED: LIDOCAINE VISCOUS 2% ORAL/TOP 20 ML UNIT-DOSE CUP ONE (04:09)
[2018-05-25] MEDS ORDERED: MAG HYDROX/AL HYDROX/SIMETH 30 ML UNIT-DOSE CUP ONE (04:09)
[2018-05-25 05:29] VITALS: BP 121/76; PULSE 55
--- NOTE | 2018-05-25 09:19 | EKG ---
Test Reason : Blood Pressure : / mmHG Vent. Rate : 050 BPM Atrial Rate : 050 BPM P-R Int : 170 ms QRS Dur : 084 ms QT Int : 412 ms P-R-T Axes : 053 010 026 degrees QTc Int : 375 ms SINUS BRADYCARDIA WITH SINUS ARRHYTHMIA OTHERWISE NORMAL ECG WHEN COMPARED WITH ECG OF 31-JAN-2015 14:37, T WAVE VARIATION Confirmed by ADI FINNEY MD ([id number]) on 05/25/2018 9:19:18 AM Referred By: Confirmed By:ADI FINNEY MD
== END 2018-05-25 05:29 | disposition home or self-care (01) ==
LOC: JER 21:18
PROC: 3E0F7GC Introduction of Other Therapeutic Substance into Respiratory Tract, Via Natural or Artificial Opening (ICD-10-PCS; principal; 2018-05-24)
PROC: 3E0333Z Introduction of Anti-inflammatory into Peripheral Vein, Percutaneous Approach (ICD-10-PCS; 2018-05-24)
PROC: 3E033GC Introduction of Other Therapeutic Substance into Peripheral Vein, Percutaneous Approach (ICD-10-PCS; 2018-05-24)
DX: R05 Cough (principal); Z98.890 Other specified postprocedural states; Z98.84 Bariatric surgery status
CPT/HCPCS: 36415; 71275-TC; 80053; 81003; 84484; 84702; 85025; 85379; 85610; 85730; 86850; 86900; 86901; 93005; 93010; 93970-TC; 99284-25

== ENCOUNTER 2019-01-02 04:00 | Emergency (ER) | payer OTHER ==
--- NOTE | 2019-01-02 04:12 | PDOC ---
Attending Attestation - Resident Resident Name: Fiorella Lopes - ED Attending Attestation I have performed the following: I have examined & evaluated the patient, The case was reviewed & discussed with the resident, I agree w/resident's findings & plan - HPI HPI: 01/02/19 07:00 see resident hpi - Physicial Exam PE: 01/02/19 07:00 agree with resident exam - Medical Decision Making 01/02/19 07:00 33-year-old female status post lap band with upper abdominal burning and vomiting Plan for CT scan abdomen and pelvis, labs Antacids, IV fluids administered Case signed out to oncoming shift pending results
[2019-01-02 04:37] VITALS: BMI 49.6
[2019-01-02] MEDS ORDERED: ONDANSETRON 4 MG/2 ML VIAL IVPUSH ONE (04:43)
--- NOTE | 2019-01-02 04:49 | PDOC ---
History of Present Illness - General Chief Complaint: Pain Stated Complaint: PAIN CHEST,LOWER BACK Time Seen by Provider: 01/02/19 04:12 History Source: Patient - History of Present Illness Initial Comments: 01/02/19 04:44 33 yo F PMH Hep C, anemia, obesity, lap band presents to ED with sudden onset chest pain that radiates to her back. pt states this pain started 1 hour prior to arrival. describes it as midsternal CP / chest burning that radiates straight back to mid thoracic down to lumbar region. pt states this is a 10/10 pain. states it is positional and pleuritic, worse with breathing and when laying down. pt states she last felt something similar after being intubated for her D&C in April. Pt smokes 2 cigarettes/day. had a few alcoholic beverages yesterday. pt states she has had gallstones in the past. endorses chills, nausea ,vomiting. denies hematemesis. denies diarrhea. denies fever 01/02/19 04:51 01/02/19 07:07 Past History - Past Medical History Allergies/Adverse Reactions: Allergies Allergy/AdvReac Type Severity Reaction Status Date / Time Iodinated Contrast Media Allergy Verified 01/02/19 04:31 [Iodinated Contrast- Oral and IV Dye] IV CONTRAST Allergy Itching Uncoded 01/02/19 04:31 Home Medications: Ambulatory Orders Nitrofurantoin Monohyd/M-Cryst [Macrobid -] 100 mg PO BID #14 capsule 04/27/18 Levofloxacin [Levaquin] 750 mg PO DAILY #5 tablet 05/25/18 Asthma: No Cancer: No Cardiac Disorders: No COPD: No Diabetes: No Dialysis: No HTN: No Liver Disease: Yes (hep c) Seizures: No Thyroid Disease: No - Surgical History Abdominal Surgery: Yes (lap band/) - Reproductive History (#): 3 Para: 2 Cervical CA: No Dysfunctional Uterine Bleeding: No Ectopic : No Endometrial CA: No Polycystic Ovaries: No Therapeutic (s) & number: No Tubal Ligation: No - Psycho Social/Smoking Cessation Hx Smoking History: Never smoked Have you smoked in the past 12 months: No Number of Cigarettes Smoked Daily: 2 If you are a former smoker, when did you quit?: 2016 Information on smoking cessation initiated: No Hx Alcohol Use: No Drug/Substance Use Hx: No Substance Use Type: None Hx Substance Use Treatment: No Review of Systems - Review of Systems Able to Perform ROS?: Yes Constitutional: Yes: Chills. No: Fever, Weakness Respiratory: Yes: Shortness of Breath Cardiac (ROS): Yes: Chest Pain. No: Lightheadedness ABD/GI: Yes: Nausea, Vomiting, Abdominal cramping. No: Constipated, Diarrhea : No: Dysuria Musculoskeletal: Yes: Back Pain Neurological: No: Headache Hematologic/Lymphatic: Yes: Anemia *Physical Exam - Vital Signs Last Vital Signs Temp Pulse Resp BP Pulse Ox 99.6 F 51 L 20 139/87 100 01/02/19 04:08 01/02/19 04:08 01/02/19 04:08 01/02/19 04:08 01/02/19 04:08 - Physical Exam General Appearance: Yes: Nourished, Appropriately Dressed, Mild Distress, Obese HEENT: positive: EOMI, Normal Voice Respiratory/Chest: positive: Chest Tender (mid sternal CP tender to palpation), Lungs Clear, Normal Breath Sounds. negative: Accessory Muscle Use, Crackles, Rales, Wheezing Cardiovascular: positive: Regular Rhythm, Regular Rate, S1, S2. negative: JVD Gastrointestinal/Abdominal: positive: Normal Bowel Sounds, Tender (RUQ, epigastric pain ), Guarding. negative: Distended Extremity: negative: Tender, Swelling, Calf Tenderness Neurologic: positive: Fully Oriented, Alert, Normal Response Heart Score/ECG Review - ECG Intrepretation Rhythm: Regular Rhythm ED Treatment Course - LABORATORY CBC & Chemistry Diagram: 01/02/19 05:50 01/02/19 05:50 - RADIOLOGY Radiology Studies Ordered: Category Date Time Status ABDOMEN & PELVIS CT WITH CONTR [CT] Stat CT Scan 01/02/19 04:41 Ordered Medical Decision Making - Medical Decision Making 01/02/19 04:54 33 yo F presenting with cp radiating to back r/o PUD r/o pancreatitis , cholelithiasis r/o ACS -CMP, CBC -lipase -EKG , no ST changes , NSR . cardiac enzymes -CT abdomen/pelvis w/ PO contrast. -IVF -zofran for nausea 01/02/19 05:53 -tylenol for pain -pepcid , maalox Discharge - Follow up/Referral Referrals: Twila Gordon [Primary Care Provider] - - Patient Discharge Instructions - Post Discharge Activity
[2019-01-02] MEDS ORDERED: SODIUM CHLORIDE 1,000 ML IV SCH (05:00)
[2019-01-02] MEDS ORDERED: ACETAMINOPHEN 325 MG TABLET (FP) PO PRN (05:11)
[2019-01-02] MEDS ORDERED: FAMOTIDINE 20 MG TABLET PO ONE (05:43)
[2019-01-02] MEDS ORDERED: MAG HYDROX/AL HYDROX/SIMETH 30 ML UNIT-DOSE CUP PO ONE (05:43)
[2019-01-02] MEDS ORDERED: ONDANSETRON 4 MG/2 ML VIAL ONE (05:49)
[2019-01-02] MEDS ORDERED: FAMOTIDINE 20 MG/50 ML IVPB 20 MG/50 ML MG IVPB ONE ×2 (05:49→05:50)
[2019-01-02 06:12] LABS: BASO % 0.8 % (0-2.0); HEMATOCRIT 40.4 % (32.4-45.2); LYMPH % 13.2 % (8-40); MCH 29.2 pg (25.7-33.7); MCHC 34.5 g/dl (32.0-36.0); MEAN CELL VOLUME 84.6 fl (80-96); MEAN PLT VOLUME 9.6 fl (7.5-11.1); MONO % 6.5 % (3.8-10.2); NEUT % 77.5 % (42.8-82.8); PLATELET COUNT 318 K/MM3 (134-434); RBC 4.78 M/mm3 (3.60-5.2); RDW 14.5 % (11.6-15.6)
[2019-01-02] MEDS ORDERED: MAG HYDROX/AL HYDROX/SIMETH 30 ML UNIT-DOSE CUP ONE (06:13)
[2019-01-02] MEDS ORDERED: ONDANSETRON *ODT* 4 MG TABLET ONE (06:13)
[2019-01-02 06:25] LABS: INR 0.93 (0.83-1.09)
[2019-01-02] MEDS ORDERED: ACETAMINOPHEN 1000 MG/100 ML VIAL (NON FORMULARY) IVPB ONE (06:34)
--- NOTE | 2019-01-02 07:07 | PDOC ---
*Physical Exam - Vital Signs Last Vital Signs Temp Pulse Resp BP Pulse Ox 99.6 F 51 L 20 139/87 100 01/02/19 04:08 01/02/19 04:08 01/02/19 04:08 01/02/19 04:08 01/02/19 04:08 ED Treatment Course - LABORATORY CBC & Chemistry Diagram: 01/02/19 05:50 01/02/19 05:50 - ADDITIONAL ORDERS Additional order review: Laboratory Results 01/02/19 01/02/19 01/02/19 05:50 05:50 05:50 PT with INR 11.00 INR 0.93 Sodium Cancelled Potassium Cancelled Chloride Cancelled Carbon Dioxide Cancelled Anion Gap Cancelled BUN Cancelled Creatinine Cancelled Est GFR (CKD-EPI)AfAm Cancelled Est GFR (CKD-EPI)NonAf Cancelled Random Glucose Cancelled Calcium Cancelled Phosphorus Cancelled Magnesium Cancelled Total Bilirubin Cancelled AST Cancelled ALT Cancelled Alkaline Phosphatase Cancelled Total Protein Cancelled Albumin Cancelled Serum , Qual Negative 01/02/19 05:50 RBC 4.78 MCV 84.6 MCHC 34.5 RDW 14.5 MPV 9.6 D Neutrophils % 77.5 Lymphocytes % 13.2 D Monocytes % 6.5 Eosinophils % 2.0 Basophils % 0.8 - Medications Given in the ED: ED Medications Discontinued Medications Generic Name Dose Route Start Last Admin Trade Name Meenu PRN Reason Stop Dose Admin Acetaminophen 1,000 mg 01/02/19 06:34 01/02/19 06:55 Ofirmev Injection - IVPB 01/02/19 06:35 Not Given ONCE ONE Al Hydroxide/Mg Hydroxide 30 ml 01/02/19 05:43 01/02/19 06:24 Mylanta Oral Suspension - PO 01/02/19 05:44 30 ml ONCE ONE Administration Famotidine 20 mg 01/02/19 05:43 01/02/19 06:25 Pepcid - PO 01/02/19 05:44 Not Given ONCE ONE Famotidine/Sodium Chloride 20 mg in 50 mls @ 100 mls/hr 01/02/19 05:50 06:24 Pepcid 20 Mg Premixed Ivpb - IVPB 01/02/19 06:19 100 mls/hr ONCE ONE Administration Ondansetron HCl 4 mg 01/02/19 04:43 01/02/19 06:54 Zofran Injection IVPUSH 01/02/19 04:44 4 mg ONCE ONE Administration Medical Decision Making - Medical Decision Making 01/02/19 07:06 rcvd sign out on this patient from night team - dispo pending CT results - needs access and pain ctrl 01/02/19 07:33 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 ED team requested a few minutes for paperwork Pt refused to sign paperwork and walked out IV was removed. Patient is determined to be of sound mind and reasoning. The patient fully understands the care they are refusing and the risks associated with leaving before complete medical evaluation as explained by the medical team. The patient has been provided with a discharge summary, return precautions, and the reassurance that the Emergency Department will resume workup if the patient changes their mind. Immediate primary care follow up has been urged. AMA Discharge - Discharge Information Problems reviewed: Yes Clinical Impression/Diagnosis: Abdominal pain Condition: Unchanged/Unknown Disposition: AGAINST MEDICAL ADVICE - Admission No - Follow up/Referral Referrals: Twila Gordon [Primary Care Provider] - - Patient Discharge Instructions Patient Printed Discharge Instructions: DI for Abdominal Pain-Adult Additional Instructions: You are leaving against medical advice and refusing complete evaluation of your abdominal pain. You may return to the ED to complete your assessment if you decide to change your mind. You MUST follow up with your primary care doctor in the next 1 day. IMMEDIATELY return to the closest ED if you experience worsening, new, or concerning symptoms. - Post Discharge Activity
[2019-01-02 07:23] LABS: ALK PHOS 99 U/L (45-117); ANION GAP 6 MMOL/L (8-16); BILIRUBIN,TOTAL 0.3 mg/dL (0.2-1); BLOOD UREA NITROGEN 11.2 mg/dL (7-18); CHLORIDE 104 mmol/L (98-107); CO2 27 mmol/L (21-32); CREATININE 0.8 mg/dL (0.55-1.3); GLUCOSE,RANDOM 105 mg/dL (74-106); LIPASE 127 U/L (73-393); PHOSPHOROUS 3.2 mg/dL (2.5-4.9); POTASSIUM 4.2 mmol/L (3.5-5.1); SGOT/AST 23 U/L (15-37); SGPT/ALT 30 U/L (13-61); SODIUM 137 mmol/L (136-145)
[2019-01-02 07:29] VITALS: BP 135/67; PULSE 89; TEMP 99
--- NOTE | 2019-01-03 10:16 | EKG ---
Test Reason : Blood Pressure : / mmHG Vent. Rate : 050 BPM Atrial Rate : 050 BPM P-R Int : 166 ms QRS Dur : 090 ms QT Int : 412 ms P-R-T Axes : 030 -04 012 degrees QTc Int : 375 ms SINUS BRADYCARDIA WITH SINUS ARRHYTHMIA OTHERWISE NORMAL ECG WHEN COMPARED WITH ECG OF 24-MAY-2018 21:29, NO SIGNIFICANT CHANGE WAS FOUND Confirmed by ADI FINNEY MD ([id number]) on 01/03/2019 10:16:35 AM Referred By: Confirmed By:ADI FINNEY MD
== END 2019-01-02 07:45 | disposition left against medical advice (07) ==
LOC: JER 04:00
PROC: 3E033GC Introduction of Other Therapeutic Substance into Peripheral Vein, Percutaneous Approach (ICD-10-PCS; principal; 2019-01-02)
PROC: 3E033GC Introduction of Other Therapeutic Substance into Peripheral Vein, Percutaneous Approach (ICD-10-PCS; 2019-01-02)
DX: R10.9 Unspecified abdominal pain (principal); D64.9 Anemia, unspecified; B18.2 Chronic viral hepatitis C; E66.01 Morbid (severe) obesity due to excess calories; Z68.42 Body mass index [BMI] 45.0-49.9, adult; Z98.84 Bariatric surgery status; Z91.041 Radiographic dye allergy status
CPT/HCPCS: 36415; 74176-TC; 80053; 82550; 83690; 83735; 84100; 84484; 84703; 85025; 85610; 93005; 93010; 96365; 96375; 99283-25

== ENCOUNTER 2019-01-23 23:06 | Emergency (ER) | payer OTHER ==
[2019-01-24 01:22] VITALS: BP 118/73; PULSE 70; TEMP 98.1; BMI 48.8
== END 2019-01-24 00:30 | disposition left against medical advice (07) ==
LOC: JER 23:06
DX: Z53.21 Procedure and treatment not carried out due to patient leaving prior to being seen by health care provider (principal)
CPT/HCPCS: 99281-25

== ENCOUNTER 2019-02-16 01:31 | Emergency (ER) | payer OTHER ==
[2019-02-16 02:03] VITALS: BP 130/78; PULSE 78; TEMP 98.2; BMI 51.5
--- NOTE | 2019-02-16 02:11 | PDOC ---
*Physical Exam - Vital Signs Last Vital Signs Temp Pulse Resp BP Pulse Ox 98.2 F 78 18 130/78 97 02/16/19 01:56 02/16/19 01:56 02/16/19 01:56 02/16/19 01:56 02/16/19 01:56 Medical Decision Making - Medical Decision Making 02/16/19 02:11 Patient seen by the advanced practice provider under my direct supervision. Ancillary testing reviewed as necessary. I agree with plan as outlined by the advanced practice provider. Discharge - Discharge Information Problems reviewed: Yes Clinical Impression/Diagnosis: Pharyngitis Qualifiers: Pharyngitis/tonsillitis etiology: unspecified etiology Qualified Code(s): J02.9 - Acute pharyngitis, unspecified Condition: Fair Disposition: HOME - Follow up/Referral Referrals: Twila Gordon [Primary Care Provider] - - Patient Discharge Instructions Patient Printed Discharge Instructions: Sore Throat Additional Instructions: Drink plenty of fluids Gargle with warm salty water Drink warm liquids Take ibuprofen every 6 hours as needed for pain or fever Follow with with your doctor as soon as possible. - Post Discharge Activity Work/Back to School Note: Back to Work
[2019-02-16] MEDS ORDERED: IBUPROFEN 600 MG TABLET (FP) PO ONE ×2 (02:25→02:51)
--- NOTE | 2019-02-16 02:38 | PDOC ---
History of Present Illness - General Chief Complaint: Sore Throat Stated Complaint: COUGHING,SORE THROAT Time Seen by Provider: 02/16/19 02:03 History Source: Patient - History of Present Illness Initial Comments: 02/16/19 02:23 33 year old female cough and throat pain since yesterday. denies fever/ chills, denies NVD, abdominal pain, last motrin yesterday morning. no PMHX Past History - Past Medical History Allergies/Adverse Reactions: Allergies Allergy/AdvReac Type Severity Reaction Status Date / Time Iodinated Contrast Media Allergy Verified 02/16/19 02:02 [Iodinated Contrast- Oral and IV Dye] IV CONTRAST Allergy Itching Uncoded 02/16/19 02:02 Home Medications: Ambulatory Orders NK [No Known Home Medication] 01/02/19 Asthma: No Cancer: No Cardiac Disorders: No COPD: No Diabetes: No Dialysis: No HTN: No Liver Disease: Yes (hep c) Seizures: No Thyroid Disease: No - Surgical History Abdominal Surgery: Yes (lap band/) - Reproductive History (#): 3 Para: 2 Cervical CA: No Dysfunctional Uterine Bleeding: No Ectopic : No Endometrial CA: No Polycystic Ovaries: No Therapeutic (s) & number: No Tubal Ligation: No - Psycho Social/Smoking Cessation Hx Smoking History: Never smoked Have you smoked in the past 12 months: No Number of Cigarettes Smoked Daily: 2 If you are a former smoker, when did you quit?: 2015 Hx Alcohol Use: No Drug/Substance Use Hx: No Substance Use Type: None Hx Substance Use Treatment: No Review of Systems - Review of Systems Able to Perform ROS?: Yes Constitutional: No: Symptoms Reported, See HPI, Chills, Diaphoresis, Fever, Loss of Appetite, Malaise, Night Sweats, Weakness, Weight Stable, Unintentional Wgt. Loss, Unexplained wgt Loss, Other HEENTM: Yes: Throat Pain Respiratory: Yes: Cough Cardiac (ROS): No: Symptoms Reported, See HPI, Chest Pain, Edema, Irregular Heart Rate, Lightheadedness, Palpitations, Syncope, Chest Tightness, Other ABD/GI: No: Symptoms Reported, See HPI, Abdominal Distended, Abd. Pain w/ defecation, Blood Streaked Bowels, Constipated, Diarrhea, Difficulty Swallowing , Nausea, Poor Appetite, Poor Fluid Intake, Rectal Bleeding, Vomiting, Indigestion, Abdominal cramping, Tarry Stools, Other *Physical Exam - Vital Signs Last Vital Signs Temp Pulse Resp BP Pulse Ox 98.2 F 78 18 130/78 97 02/16/19 01:56 02/16/19 01:56 02/16/19 01:56 02/16/19 01:56 02/16/19 01:56 - Physical Exam General Appearance: Yes: Appropriately Dressed HEENT: positive: Other (tonsillar erythema, uvula midline). negative: Muffled/ Hoarse voice Respiratory/Chest: positive: Lungs Clear, Normal Breath Sounds Cardiovascular: positive: Regular Rhythm, Regular Rate Musculoskeletal: positive: Normal Inspection Extremity: positive: Normal Capillary Refill, Normal Inspection, Normal Range of Motion Integumentary: positive: Normal Color, Dry, Warm Neurologic: positive: Fully Oriented Medical Decision Making - Medical Decision Making A: pharyngitis P: strep negative decadron supportive care Discharge - Discharge Information Problems reviewed: Yes Clinical Impression/Diagnosis: Pharyngitis Qualifiers: Pharyngitis/tonsillitis etiology: unspecified etiology Qualified Code(s): J02.9 - Acute pharyngitis, unspecified Condition: Fair Disposition: HOME - Follow up/Referral Referrals: Twila Gordon [Primary Care Provider] - - Patient Discharge Instructions Patient Printed Discharge Instructions: Sore Throat Additional Instructions: Drink plenty of fluids Gargle with warm salty water Drink warm liquids Take ibuprofen every 6 hours as needed for pain or fever Follow with with your doctor as soon as possible. - Post Discharge Activity Work/Back to School Note: Back to Work
[2019-02-16] MEDS ORDERED: DEXAMETHASONE SOD PHOSPHATE 10 MG/1 ML VIAL ONE (02:51)
[2019-02-16] MEDS ORDERED: DEXAMETHASONE 4 MG TABLET (FP) PO ONE (03:00)
== END 2019-02-16 03:12 | disposition home or self-care (01) ==
LOC: JER 01:31
DX: J02.9 Acute pharyngitis, unspecified (principal); Z86.19 Personal history of other infectious and parasitic diseases; Z91.041 Radiographic dye allergy status
CPT/HCPCS: 87070; 87880; 99281-25

== ENCOUNTER 2021-03-04 17:36 | Emergency (ER) | payer OTHER ==
[2021-03-04 18:07] VITALS: BP 129/68; PULSE 79; TEMP 97.7; BMI 48.8
== END 2021-03-04 19:39 | disposition left against medical advice (07) ==
LOC: JERFT 17:36
DX: K08.89 Other specified disorders of teeth and supporting structures (principal)
CPT/HCPCS: 99281-25

== ENCOUNTER 2022-03-08 14:57 | Emergency (ER) | payer OTHER ==
[2022-03-08 15:16] VITALS: BP 127/89; TEMP 97.9; BMI 53.6
[2022-03-08] MEDS ORDERED: IBUPROFEN 400 MG TABLET (FP) PO PRN (16:20)
[2022-03-08] MEDS ORDERED: IBUPROFEN 400 MG TABLET (FP) PO ONE ×2 (16:21→16:24)
[2022-03-08 16:34] VITALS: PULSE 73; RESP 18
== END 2022-03-08 17:04 | disposition home or self-care (01) ==
LOC: JERFT 14:57
DX: M70.22 Olecranon bursitis, left elbow (principal)
CPT/HCPCS: 99283-25

== ENCOUNTER 2024-05-06 01:08 | Emergency (ER) | payer OTHER ==
[2024-05-06 01:18] VITALS: BMI 54.6
[2024-05-06] MEDS ORDERED: ACETAMINOPHEN INJECTION 100 ML ONE (02:59)
[2024-05-06] MEDS ORDERED: methylPREDNISolone NA SUCC 125 MG/2 ML VIAL ONE (03:00)
[2024-05-06] MEDS ORDERED: FAMOTIDINE 20 MG/50 ML IVPB 20 MG/50 ML MG IVPB ONE (03:00)
[2024-05-06] MEDS: FAMOTIDINE 20 MG/50 ML IVPB 20 MG/50 ML MG IVPB ONE (03:35)
[2024-05-06] MEDS: ACETAMINOPHEN 1000 MG/100 ML BAG IVPB ONE (03:35)
[2024-05-06] MEDS: methylPREDNISolone NA SUCC 125 MG/2 ML VIAL IVPUSH ONE (03:35)
[2024-05-06] MEDS: LACTATED RINGERS SOLUTION 1000 ML INFUS.BAG IV ONE (03:35)
[2024-05-06 03:55] LABS: BASO % 0.4 % (0-2.0); EOS % 3.1 % (0-4.5); HEMATOCRIT 40.1 % (32.4-45.2); HEMOGLOBIN 13.5 GM/dL (10.7-15.3); LYMPH % 20.8 % (8-40); MCH 29.7 pg (25.7-33.7); MCHC 33.7 g/dl (32.0-36.0); MEAN CELL VOLUME 88.3 fl (80-96); MEAN PLT VOLUME 8.6 fl (7.5-11.1); MONO % 8.1 % (3.8-10.2); NEUT % 67.6 % (42.8-82.8); PLATELET COUNT 275 10^3/uL (134-434); RBC 4.55 M/mm3 (3.60-5.2); RDW 13.5 % (11.6-15.6); WHITE BLOOD COUNT 9.1 K/mm3 (4.0-10.0)
[2024-05-06 04:02] LABS: INR 1.12 (0.83-1.09); PROTHROMBIN TIME (PATIENT) 12.3 SEC (9.7-13.0)
[2024-05-06 04:05] LABS: ACTIVATED PTT 30.8 SECONDS (25.2-36.5)
[2024-05-06 04:23] LABS: POTASSIUM 4.5 mmol/L (3.5-5.1)
[2024-05-06 04:26] LABS: CALCIUM 9.1 mg/dL (8.5-10.1)
[2024-05-06 04:27] LABS: ALBUMIN 3.6 g/dl (3.4-5.0); BLOOD UREA NITROGEN 14.9 mg/dL (7-18); MAGNESIUM 1.9 mg/dL (1.8-2.4)
[2024-05-06 04:30] LABS: CREATININE 0.9 mg/dL (0.55-1.3)
[2024-05-06 04:31] LABS: BILIRUBIN,TOTAL 0.7 mg/dL (0.2-1); TOT PROT 7.4 g/dl (6.4-8.2)
[2024-05-06 05:33] VITALS: RESP 18
[2024-05-06 08:59] VITALS: BP 102/55; PULSE 60; TEMP 98.6
[2024-05-06 09:01] LABS: EPI CELLS 31 /uL (0-25.1); HYALINE CASTS 0 /uL (0-3.1); PH,URINE 8.5 (5.0-8.0); URINE APPEARANCE CLEAR; URINE BACTERIA 5767 /uL (0-1359); URINE BILIRUBIN NEGATIVE (NEGATIVE); URINE COLOR YELLOW; URINE GLUCOSE (UA) NEGATIVE (NEGATIVE); URINE KETONE NEGATIVE (NEGATIVE); URINE LEUK ESTERASE 1+ (NEGATIVE); URINE NITRITE NEGATIVE (NEGATIVE); URINE PROTEIN NEGATIVE (NEGATIVE); URINE RBC 19 /uL (0-23.9); URINE UROBILINOGEN 0.2 mg/dL (0.2-1.0); URINE WBC 44 /uL (0-25.8)
[2024-05-06] MEDS ORDERED: TAMSULOSIN HCL 0.4 MG CAP ONE (09:45)
[2024-05-06] MEDS: TAMSULOSIN HCL 0.4 MG CAP PO ONE (09:58)
[2024-05-06] MEDS: CEFPODOXIME PROXETIL 100 MG TABLET PO ONE (10:02)
== END 2024-05-06 10:02 | disposition home or self-care (01) ==
LOC: JER 01:08
PROC: 3E033GC Introduction of Other Therapeutic Substance into Peripheral Vein, Percutaneous Approach (ICD-10-PCS; principal; 2024-05-06)
PROC: 3E033NZ Introduction of Analgesics, Hypnotics, Sedatives into Peripheral Vein, Percutaneous Approach (ICD-10-PCS; 2024-05-06)
PROC: 3E033GC Introduction of Other Therapeutic Substance into Peripheral Vein, Percutaneous Approach (ICD-10-PCS; 2024-05-06)
DX: R10.11 Right upper quadrant pain (principal); R10.13 Epigastric pain; K59.00 Constipation, unspecified
CPT/HCPCS: 0241U-QW; 36415; 74177-TC; 80053; 81003; 83690; 83735; 84703; 85025; 85610; 85730; 86850; 86900; 86901; 87086; 87186; 93005; 93010; 99285-25; J0131; Q9967

== ENCOUNTER 2024-05-27 22:57 | Observation (INO) | payer OTHER ==
[2024-05-27] MEDS ORDERED: DEXAMETHASONE SOD PHOSPHATE 10 MG/1 ML VIAL ONE (23:30)
[2024-05-27] MEDS ORDERED: ACETAMINOPHEN INJECTION 100 ML ONE (23:30)
[2024-05-27] MEDS ORDERED: KETOROLAC TROMETHAMINE 15 MG/ML VIAL ONE (23:30)
[2024-05-27] MEDS ORDERED: FAMOTIDINE 20 MG/50 ML IVPB 20 MG/50 ML MG IVPB ONE (23:31)
[2024-05-27] MEDS: ACETAMINOPHEN 325 MG TABLET (FP) PO ONE (23:59)
[2024-05-27] MEDS: DEXAMETHASONE SOD PHOSPHATE 10 MG/1 ML VIAL IVPUSH ONE (23:59)
[2024-05-27] MEDS: ACETAMINOPHEN 1000 MG/100 ML BAG IVPB ONE (23:59)
[2024-05-27] MEDS: FAMOTIDINE 20 MG/50 ML IVPB 20 MG/50 ML MG IVPB ONE (23:59)
[2024-05-27] MEDS: KETOROLAC TROMETHAMINE 15 MG/ML VIAL IVPUSH ONE (23:59)
[2024-05-28 00:04] LABS: ABSOLUTE IMMATURE GRANULOCYTES 0.03 x10^3/uL (0.0-0.031); BASOPHILS # 0.02 x10^3/uL (0.01-0.08); EOSINOPHIL % 8.1 % (0.7-5.8); EOSINOPHILS # 0.47 x10^3/uL (0.04-0.36); HEMATOCRIT 43.5 % (34.1-44.9); HEMOGLOBIN 14.3 g/dL (11.2-15.7); MCHC 32.9 g/dl (32.2-35.5); MEAN CELL VOLUME 88.8 fl (79.4-94.8); MEAN PLT VOLUME 10.9 fl (9.4-12.3); MONOCYTE # 0.38 x10^3/uL (0.24-0.86); MONOCYTE % 6.5 % (4.7-12.5); PLATELET COUNT 195 x10^3/uL (182-369)
[2024-05-28 00:09] LABS: EPI CELLS 21 /uL (0-25.1); HYALINE CASTS 3 /uL (0-3.1); PH,URINE 5.5 (5.0-8.0); URINE APPEARANCE CLEAR; URINE BACTERIA 198 /uL (0-1359); URINE BILIRUBIN NEGATIVE (NEGATIVE); URINE COLOR YELLOW; URINE GLUCOSE (UA) NEGATIVE (NEGATIVE); URINE KETONE NEGATIVE (NEGATIVE); URINE LEUK ESTERASE TRACE (NEGATIVE); URINE NITRITE NEGATIVE (NEGATIVE); URINE PROTEIN NEGATIVE (NEGATIVE); URINE UROBILINOGEN 0.2 mg/dL (0.2-1.0); URINE WBC 931 /uL (0-25.8)
[2024-05-28 00:20] LABS: ALBUMIN 3.9 g/dl (3.4-5.0); BLOOD UREA NITROGEN 13.8 mg/dL (7-18); CALCIUM 9.3 mg/dL (8.5-10.1)
[2024-05-28 00:24] LABS: CREATININE 1.2 mg/dL (0.55-1.3)
[2024-05-28 00:25] LABS: BILIRUBIN,TOTAL 0.3 mg/dL (0.2-1); TOT PROT 7.8 g/dl (6.4-8.2)
[2024-05-28] MEDS ORDERED: diphenhydrAMINE HCL 25 MG CAPSULE (FP) PO ONE (00:29)
[2024-05-28] MEDS: diphenhydrAMINE HCL 25 MG CAPSULE (FP) PO ONE ×2 (00:37→03:12)
[2024-05-28] MEDS: LACTATED RINGERS SOLUTION 1000 ML INFUS.BAG IV ONE (00:37)
[2024-05-28] MEDS ORDERED: DOCUSATE SODIUM 100 MG CAPSULE (FP) PO PRN (01:37)
[2024-05-28] MEDS ORDERED: ACETAMINOPHEN 325 MG TABLET (FP) PO PRN (01:37)
[2024-05-28] MEDS ORDERED: diphenhydrAMINE HCL 25 MG CAPSULE (FP) PO PRN ×2 (01:37→13:06)
[2024-05-28] MEDS: SODIUM CHLORIDE 500 ML IV STA (02:34)
[2024-05-28 03:06] VITALS: BMI 56.0
[2024-05-28] MEDS ORDERED: KETOROLAC TROMETHAMINE 15 MG/ML VIAL IVPUSH PRN (06:00)
[2024-05-28 09:11] LABS: HEMATOCRIT 41.1 % (34.1-44.9); HEMOGLOBIN 13.6 g/dL (11.2-15.7); MCHC 33.1 g/dl (32.2-35.5); MEAN CELL VOLUME 87.6 fl (79.4-94.8); MEAN PLT VOLUME 11.5 fl (9.4-12.3); PLATELET COUNT 197 x10^3/uL (182-369)
[2024-05-28 09:23] VITALS: RESP 18
[2024-05-28 09:33] LABS: CALCIUM 8.8 mg/dL (8.5-10.1)
[2024-05-28 09:34] LABS: ALBUMIN 3.4 g/dl (3.4-5.0)
[2024-05-28 09:37] LABS: CREATININE 1.5 mg/dL (0.55-1.3)
[2024-05-28 09:38] LABS: BILIRUBIN,TOTAL 0.4 mg/dL (0.2-1); TOT PROT 7.3 g/dl (6.4-8.2)
[2024-05-28 09:42] LABS: MONOCYTE # 0.09 x10^3/uL (0.24-0.86)
[2024-05-28] MEDS ORDERED: BETAMETHASONE DIP 0.05% TP LOTION 30 ML BOTTLE TP SCH (10:00)
[2024-05-28] MEDS: BETAMETHASONE DIPR 0.05% OINTMENT 15 GM TUBE TP SCH (10:18)
[2024-05-28] MEDS: methylPREDNISolone NA SUCC 125 MG/2 ML VIAL IVPUSH SCH (13:38)
[2024-05-28] MEDS: FAMOTIDINE 20 MG TABLET PO SCH (13:39)
[2024-05-28] MEDS: methylPREDNISolone NA SUCC 40 MG/1 ML VIAL IVPUSH SCH (13:39)
[2024-05-28 13:59] VITALS: BP 115/69; PULSE 64; TEMP 98.1
[2024-05-28] MEDS: DEXTROSE 5%-0.45% SALINE 1,000 ML IV SCH (14:25)
[2024-05-28] MEDS: SODIUM CHLORIDE 0.45% 1,000 ML IV SCH (14:44)
[2024-05-29] MEDS ORDERED: methylPREDNISolone NA SUCC 125 MG/2 ML VIAL IVPUSH SCH (10:00)
== END 2024-05-28 16:10 | disposition left against medical advice (07) ==
LOC: JER 22:57 → JERBED 05-28 01:10 → J7W 05-28 02:22
PROVIDERS: ADMIT Internal Medicine; ATTEND Internal Medicine
PROC: 3E033NZ Introduction of Analgesics, Hypnotics, Sedatives into Peripheral Vein, Percutaneous Approach (ICD-10-PCS; principal; 2024-05-28)
PROC: 3E033GC Introduction of Other Therapeutic Substance into Peripheral Vein, Percutaneous Approach (ICD-10-PCS; 2024-05-28)
PROC: 3E0337Z Introduction of Electrolytic and Water Balance Substance into Peripheral Vein, Percutaneous Approach (ICD-10-PCS; 2024-05-28)
DX: T78.40XA Allergy, unspecified, initial encounter (principal); X58.XXXA Exposure to other specified factors, initial encounter; Y99.8 Other external cause status; D64.9 Anemia, unspecified; Z87.440 Personal history of urinary (tract) infections; Z86.19 Personal history of other infectious and parasitic diseases; F17.210 Nicotine dependence, cigarettes, uncomplicated; Z85.3 Personal history of malignant neoplasm of breast
CPT/HCPCS: 0241U-QW; 36415; 71045-TC-FY; 80053; 81003; 84703; 85025; 85651; 86140; 87040; 87086; 87651; 93005; 93010; 96361; 96365; 96375; 96376; 99285-25; G0378; J0131; J1100